=== PATIENT | male | born 1985 | race Hispanic/Latino ===

== ENCOUNTER 2024-02-16 08:02 | Emergency (ER) | payer SELFPAY ==
[2024-02-16 08:08] VITALS: BP 152/103
--- NOTE | 2024-02-16 08:54 | ED.GENMED ---
History of Present Illness
General
Chief Complaint: Musculo-Skeletal Complaint
Source: patient
Exam Limitations: other (Lebanese-speaking clinical appeals reviewer used)
Time Seen by Provider: 02/16/24 08:26
Nursing documentation reviewed up to this point in time: agreed with
History of Present Illness
History of Present Illness:
38-year-old male presenting to the emergency department today with concerns after falling what he describes 8 feet from a ladder yesterday ongoing pain to the left low back as well as the right hand. Able to walk denies hitting his head or neck
denies losing consciousness denies numbness or weakness. No abdominal pain.
Past History
Past History
ED Past Medical History: None
ED Past Surgical History: None
Social History
Employment: Employed
Review of Systems
Review of Systems
Allergies reviewed?: Yes
All Other Systems: ROS reviewed and negative except as documented in HPI and ROS
Phy Exam
Physical Exam
Physical Exam:
GENERAL: Alert , in no apparent distress
EYE: pupils equal and reactive
NECK: Supple, no significant adenopathy.
ENT: o/p clr, mmm.
CARDIAC: Regular rate and rhythm .
LUNGS: Clear breath sounds bilaterally, no acute respiratory distress, no wheezes/rales/rhonchi
ABDOMEN: Soft, without focal tenderness, no r/g, no cvat mild pain to the low back mainly to the paraspinal muscles to the left lumbar region.
NEUROLOGICAL: Alert and oriented, no focal neuro deficits
SKIN: Warm and dry, skin intact.
MUSCULOSKELETAL: Mild swelling discomfort mainly to the fourth digit of the right hand no pain to the remainder of the hand wrist or forearm. Well perfused.
PSYCH: Normal and appropriate interaction.
Course
Orders/Labs/Results
Orders:
Orders
02/16/24 08:33
CR Hand - Right Min 3 Views Urgent
Comment:
Reason For Exam: pain after fall from ladder
Lumbar Spine, 2 or 3 View [CR Lumbar Spine 2 Or 3 Views] Urgent
Comment:
Reason For Exam: left low back pain
02/16/24 09:09
CBC/With Diff [Complete Blood Count/With Diff] Urgent
CMP [Comprehensive Metabolic Panel] Urgent
Glycohemoglobin (HgbA1c) Urgent
Urinalysis Reflex To Culture Urgent
Date Specimen was Collected: 02/16/24
Time Specimen was Collected: 09:08
02/16/24 11:36
METFORMIN HCl [Glucophage] 500 mg PO NOW STA
02/16/24 11:39
Add On- LAB Urgent
Tests Added?: HBA1c
Abnormal Lab Results
02/16/24 02/16/24
09:09 11:20
MCH 31.8 H pg
(27.0-31.0)
MCHC 37.1 H g/dL
(33.0-37.0)
MPV 11.1 H fL
(7.4-10.4)
Absolute Lymphs (auto) 1.1 L 10^3/uL
(1.2-3.4)
Creatinine 0.6 L mg/dL
(0.7-1.3)
Glucose 441 H mg/dl
(70-99)
Urine Glucose 3+ A
(Negative)
POC Glucose 295 H mg/dl
(70-99)
02/16/24 09:09
02/16/24 09:09
Vital Signs
Initial and Last Documented VS:
Initial Vital Signs
Temp Pulse Resp BP Pulse Ox
97.9 F 100 18 152/103 100
02/16/24 08:08 02/16/24 08:08 02/16/24 08:08 02/16/24 08:08 02/16/24 08:08
Last Documented Vital Signs
Temp Pulse Resp BP Pulse Ox
97.9 F 100 18 152/103 100
02/16/24 08:08 02/16/24 08:08 02/16/24 08:08 02/16/24 08:08 02/16/24 08:08
MDM/Problems Addressed
MDM/Problems Addressed:
38-year-old male presenting to the emergency department for falling off a ladder yesterday described as 8 feet in height. Mainly hit his right hand and left low back. Plan for x-rays of both areas as well as a urinalysis and labs to ensure no
internal injury no abdominal pain no pain significant at the CVA. X-rays without evidence of acute abnormality. Labs were obtained did not show any signs of trauma with no blood in the urine normal renal function however did show glucose in the
urine as well as an elevated sugar level in the blood of 441 this was repeated after consuming some water by mouth with a glucose of 295. Concerning for potential diabetes. This was explained thoroughly to the patient was started on metformin
advised for close outpatient follow-up. Return precautions given.
*Critical Care Note
Total Time (30-74mins, 75-104mins- exclusive of procedures): Not Applicable
ED Attending Note
-
Portions of this chart may have been created with voice recognition software.� Occasional wrong word or��sound alike� substitutions may have occurred due to the inherent limitations of voice recognition software.
Discharge Plan
Departure
Patient Disposition: Home (Routine Discharge)
Date of Disposition: 02/16/24
Time of Disposition: 11:55
Patient with high blood pressure during this ER visit?: No
Condition: Good
Covid-19: Not Applicable
Discharge Problem:
Fall, Hand pain, Elevated blood sugar level
Instructions: High Blood Sugar, Adult ED
Prescriptions:
New
metformin 500 mg tablet
500 mg PO BID 21 Days Qty: 42 0RF
Referrals:
Ronny Lei MD [Active] -
Jose Juan Pham MD [Active] -
Rama Velasquez PA-C [Non-Admitting Privileges] -
NONE,* [Family Provider] -
Activity Restrictions/Additional Instructions:
You came to the emergency department today with concerns of a fall off a ladder. Your x-rays did not show emergent findings but your sugar level was elevated. Please take the prescribed medications and follow-up closely with the [facility] for
further management. Return to the emergency department for any worsening, new or concerning symptoms.
Interventions
Interventions:
*Risk Screen - Suicide Last Done: 02/16/24 08:08
*General Assessment Last Done: 02/16/24 08:08
*Neglect/Abuse Screening Last Done: 02/16/24 08:08
*ED COVID-19 Vaccine History Last Done: 02/16/24 08:08
Discharge Date and Time
Print Language: ESTONIAN
[2024-02-16 09:23] LABS: % Basophils 0.6 % (0-2); % Eosinophils 0.6 % (0-6); % Immature Granulocytes 0.4 % (0-0.5); % Monocytes 7.3 % (1.7-9.3); % Neutrophils 69.1 % (42.2-75.2); Absolute Lymphocytes 1.1 10^3/uL (1.2-3.4); Absolute Monocytes 0.4 10^3/uL (0.1-0.6); Absolute Neutrophils 3.5 10^3/uL (1.4-6.5); Hematocrit 42.3 % (39.0-52.0); Hemoglobin 15.7 g/dL (13.0-18.0); Mean Corp Hgb Conc. 37.1 g/dL (33.0-37.0); Mean Corpuscular Hgb 31.8 pg (27.0-31.0); Mean Corpuscular Volume 85.6 fL (80.0-94.0); Mean Platelet Volume 11.1 fL (7.4-10.4); Nucleated Red Blood Cells % 0 % (-); Platelet Count 209 10^3/uL (130-400); Red Blood Cell Count 4.94 10^6/uL (4.70-6.10); Red Cell Dist. Width 11.5 % (11.5-14.5); White Blood Cell Count 5.1 10^3/uL (4.8-10.8)
[2024-02-16 09:26] LABS: Urine Albumin Negative (Neg - Trace); Urine Bilirubin Negative (Negative); Urine Character Clear (Clear); Urine Color Yellow; Urine Glucose 3+ (Negative); Urine Ketone Negative (Negative); Urine Leukocyte Negative (Negative); Urine Nitrite Negative (Negative); Urine Occult Blood Negative (Negative); Urine Urobilinogen Negative (Neg - 1+)
[2024-02-16 09:45] LABS: ALT (SGPT) 31 U/L (0-50); AST (SGOT) 28 U/L (17-59); Albumin 4.2 g/dl (3.5-5.0); Alkaline Phosphatase 123 U/L (38-126); Blood Urea Nitrogen 11 mg/dl (9-20); Calcium 9.5 mg/dl (8.4-10.2); Carbon Dioxide 27 mmol/L (22-30); Chloride 100 mmol/L (98-107); Glucose 441 mg/dl (70-99); Potassium 4.7 mmol/L (3.5-5.1); Sodium 137 mmol/L (135-145); Total Bilirubin 0.6 mg/dl (0.2-1.3); Total Protein 6.5 g/dl (6.3-8.2); eGFR > 60.00
[2024-02-16 11:21] LABS: Glucose - Point of Care 295 mg/dl (70-99)
[2024-02-16] MEDS: GLUCOPHAGE 500 MG PO (11:54)
[2024-02-16 12:56] VITALS: BP 141/77
[2024-02-16 12:58] LABS: Glycohemoglobin (HgbA1c) 11.2 % (4.0-5.6)
== END 2024-02-16 13:00 | disposition home or self-care (01) ==
LOC: EMR 08:02
PROVIDERS: Physician Assistant; EMERGENCY PHYSICIAN Student in an Organized Health Care Education/Training Program
DX: M79.641 Pain in right hand (principal); M54.50 Low back pain, unspecified; W11.XXXA Fall on and from ladder, initial encounter; R73.9 Hyperglycemia, unspecified
CPT/HCPCS: 99284; 72100; 73130; 80053; 81003; 82962; 83036; 85025

== ENCOUNTER → 2024-02-25 12:02 | Outpatient (REF) | payer OTHER, SELFPAY ==
[2024-02-25 13:26] LABS: ALT (SGPT) 50 U/L (0-50); AST (SGOT) 33 U/L (17-59); Albumin 4.8 g/dl (3.5-5.0); Alkaline Phosphatase 73 U/L (38-126); Blood Urea Nitrogen 13 mg/dl (9-20); Calcium 10.1 mg/dl (8.4-10.2); Carbon Dioxide 27 mmol/L (22-30); Chloride 101 mmol/L (98-107); Glucose 177 mg/dl (70-99); HDL Cholesterol 41 mg/dl; LDL Cholesterol, Calculated 83 mg/dl; Potassium 4.7 mmol/L (3.5-5.1); Sodium 143 mmol/L (135-145); Total Bilirubin 0.6 mg/dl (0.2-1.3); Total Cholesterol 145 mg/dl (50-199); Total Protein 7.4 g/dl (6.3-8.2); Triglyceride 107 mg/dl (10-149); Very Low Density Lipoprotein 21 mg/dl (0-30); eGFR > 60.00
[2024-02-27 23:11] LABS: Insulin, Random 13 uIU/mL
[2024-02-28 07:10] LABS: Islet Cell Antibody, IgG <1:4 (<1:4)
== END ==
LOC: REG 12:02
PROVIDERS: ATTENDING PHYSICIAN Family Medicine
DX: E11.65 Type 2 diabetes mellitus with hyperglycemia (principal)
CPT/HCPCS: 36415; 80053; 80061; 83525; 86341

== ENCOUNTER → 2024-06-23 09:23 | Outpatient (REF) | payer OTHER, SELFPAY ==
[2024-06-23 11:00] LABS: Microalbumin, Random Urine < 0.6 mg/dl (0.6-1.7)
[2024-06-23 11:01] LABS: ALT (SGPT) 34 U/L (0-50); AST (SGOT) 26 U/L (17-59); Albumin 4.6 g/dl (3.5-5.0); Alkaline Phosphatase 70 U/L (38-126); Blood Urea Nitrogen 11 mg/dl (9-20); Carbon Dioxide 31 mmol/L (22-30); Chloride 102 mmol/L (98-107); Glucose 151 mg/dl (70-99); Sodium 138 mmol/L (135-145); Total Bilirubin 0.6 mg/dl (0.2-1.3); Total Protein 7.2 g/dl (6.3-8.2); eGFR > 60.00
[2024-06-23 11:40] LABS: Glycohemoglobin (HgbA1c) 7.1 % (4.0-5.6)
== END ==
LOC: CLINIC 09:23
PROVIDERS: ATTENDING PHYSICIAN Family Medicine
DX: E11.65 Type 2 diabetes mellitus with hyperglycemia (principal)
CPT/HCPCS: 36415; 80053; 82043; 83036